=== PATIENT | female | born 1970 | race Caucasian/White ===

== ENCOUNTER 2017-02-28 15:48 | Emergency (ER) | payer BC ==
--- NOTE | 2017-02-28 17:03 | RAD ---
HISTORY: Pain and swelling over the last few weeks. COMPARISON: None. TECHNIQUE: four views of Right knee. FINDINGS: Bones: No fracture or dislocation. Joints: Moderate lateral compartment joint space loss with minimal medial compartment joint space loss. Soft tissue: Small joint effusion. IMPRESSION: Degenerative changes with small joint effusion. No fracture or dislocation.
== END 2017-02-28 17:50 | disposition home or self-care (01) ==
LOC: ED 15:48
DX: M25.461 Effusion, right knee (principal)